=== PATIENT | male | born 1950 | race Caucasian/White ===

== ENCOUNTER 2016-10-17 03:45 | Emergency (ER) | payer MEDICARE, OTHER ==
[~2016-10-17] VITALS: Ht 182.9 cm; Wt 98.0 kg
[2016-10-17 03:47] VITALS: BP 136/87; PULSE 100; RESP 16; O2SAT 93
[2016-10-17 03:59] VITALS: PULSE 94; RESP 16; TEMP 98.6; O2SAT 91
[2016-10-17] MEDS ORDERED: ESOM1CAP6 PO (04:04)
[2016-10-17] MEDS ORDERED: PLAQ200T PO (04:04)
[2016-10-17] MEDS ORDERED: LISI10TA PO (04:04)
[2016-10-17] MEDS ORDERED: HYDR-3516 PO (04:05)
[2016-10-17] MEDS ORDERED: SODIUM CHLOR 0.9% 1000 ML INJ 1,000 ML IV SCH (04:12)
[2016-10-17] MEDS ORDERED: ONDANSETRON HCL 4 MG/2 ML VIAL IVP ONE (04:15)
[2016-10-17] MEDS ORDERED: SODIUM CHLORIDE 0.9% FLUSH 10 ML FLUSH IV FLUSH PRN (04:15)
--- NOTE | 2016-10-17 04:19 | PD ---
HPI Chief Complaint: Abdominal pain Time Seen by Provider: 04:11 Travel History International Travel<30 days: No Contact w/Intl Traveler<30days: No Traveled to known affect area: No History of Present Illness HPI His is a 66-year-old gentleman with history of arthritis and hypertension, who presents here with complaints of abdominal pain with associated diarrhea. Please note that the initial triage sheet stated chest pain however he has abdominal pain. The patient denies any fevers, chills. He states he recently came down here from [place]. He denies any ill contacts. Patient also reports left shoulder pain. When asked if he had chest pain, he points up to his left upper shoulder. He denies any shortness breath or diaphoresis. He does state he feels extremely weak. There are no other complaints time of my examination. PFSH Past Medical History Arthritis: Yes Cardiovascular Problems: Yes (HTN) Hiatal Hernia: Yes Hypertension: Yes Influenza Vaccination: Yes Social History Alcohol Use: No Tobacco Use: No Substance Use: No Allergies-Medications (Allergen,Severity, Reaction): Coded Allergies: Visken (Verified Allergy, Severe, Hallucinations, 10/17/16) Reported Meds & Prescriptions Reported Meds & Active Scripts Active Reported Hydrocodone-Acetaminophen 5-325 mg Tab 1 Tab PO Q4H PRN Plaquenil (Hydroxychloroquine Sulfate) 200 Mg Tab 400 Mg PO DAILY Take with food Nexium 24 HR (Esomeprazole DR) 20 Mg Capdr 20 Mg PO DAILY Lisinopril-Hctz 10-12.5 Mg Tab 1 Tab PO DAILY Review of Systems Except as stated in HPI: all other systems reviewed are Neg General / Constitutional: No: Fever HENT: No: Headaches, Lightheadedness, Neck Pain Cardiovascular: Positive: Chest Pain or Discomfort, No: Palpitations, Irregular Rhythm, Syncope Respiratory: No: Cough Gastrointestinal: Positive: Nausea, Diarrhea, Abdominal Pain (crampy mid), No : Vomiting Genitourinary: No: Frequency, Dysuria Musculoskeletal: Positive: Weakness (left shoulder generalized), Pain Neurologic: Positive: Weakness, No: Dizziness (10 Javier), Headache, Change in Mentation Physical Exam Narrative GENERAL: Well-developed well-nourished gentleman who appears weak. SKIN: Focused skin assessment warm/dry. HEAD: Atraumatic. Normocephalic. EYES: No scleral icterus. No injection or drainage. ENT: No nasal bleeding or discharge. Mucous membranes pink and moist. NECK: Trachea midline. Supple. CARDIOVASCULAR: Regular rate and rhythm. No murmur appreciated. RESPIRATORY: No accessory muscle use. Clear to auscultation. Breath sounds equal bilaterally. GASTROINTESTINAL: Abdomen soft, nondistended. He has subjective tenderness is periumbilical area. There is no rebound but there was voluntary guarding. MUSCULOSKELETAL: No obvious deformities. No clubbing. No cyanosis. No edema. NEUROLOGICAL: Awake and alert but weak appearing. No obvious cranial nerve deficits. Motor grossly within normal limits. Normal speech. Data Data Last Documented VS Vital Signs Date Time Temp Pulse Resp B/P Pulse Ox O2 Delivery O2 Flow Rate FiO2 10/17/16 06:06 78 16 126/76 93 Room Air 10/17/16 03:59 98.6 Orders Basic Metabolic Panel (Bmp) (10/17/16 04:12) Complete Blood Count With Diff (10/17/16 04:12) Lipase (10/17/16 04:12) Urinalysis - C+S If Indicated (10/17/16 04:12) Ct Abd/Pel W Iv Contrast(Rout) (10/17/16 04:12) Iv Access Insert/Monitor (10/17/16 04:12) Ecg Monitoring (10/17/16 04:12) Oximetry (10/17/16 04:12) Ondansetron Inj (Zofran Inj) (10/17/16 04:15) Sodium Chlor 0.9% 1000 Ml Inj (Ns 1000 M (10/17/16 04:12) Sodium Chloride 0.9% Flush (Ns Flush) (10/17/16 04:15) Ckmb (Isoenzyme) Profile (10/17/16 04:12) Troponin I (10/17/16 04:12) Oral Contrast - Adult (10/17/16 04:19) Diatrizoate Liq ( Gastroview Liq) (10/17/16 04:21) Iohexol 350 Inj (Omnipaque 350 Inj) (10/17/16 06:12) Labs Laboratory Tests Test 10/17/16 10/17/16 04:10 05:50 White Blood Count 9.3 TH/MM3 Red Blood Count 5.07 MIL/MM3 Hemoglobin 14.8 GM/DL Hematocrit 44.9 % Mean Corpuscular Volume 88.5 FL Mean Corpuscular Hemoglobin 29.2 PG Mean Corpuscular Hemoglobin 33.0 % Concent Red Cell Distribution Width 14.0 % Platelet Count 212 TH/MM3 Mean Platelet Volume 8.3 FL Neutrophils (%) (Auto) 69.7 % Lymphocytes (%) (Auto) 14.8 % Monocytes (%) (Auto) 10.1 % Eosinophils (%) (Auto) 4.7 % Basophils (%) (Auto) 0.7 % Neutrophils # (Auto) 6.5 TH/MM3 Lymphocytes # (Auto) 1.4 TH/MM3 Monocytes # (Auto) 0.9 TH/MM3 Eosinophils # (Auto) 0.4 TH/MM3 Basophils # (Auto) 0.1 TH/MM3 CBC Comment DIFF FINAL Differential Comment Sodium Level 142 MEQ/L Potassium Level 3.9 MEQ/L Chloride Level 108 MEQ/L Carbon Dioxide Level 26.4 MEQ/L Anion Gap 8 MEQ/L Blood Urea Nitrogen 14 MG/DL Creatinine 0.98 MG/DL Estimat Glomerular Filtration 76 ML/MIN Rate Random Glucose 110 MG/DL Calcium Level 8.0 MG/DL Total Creatine Kinase 83 U/L Troponin I LESS THAN 0.02 NG/ML Lipase 79 U/L Urine Color YELLOW Urine Turbidity HAZY Urine pH 5.5 Urine Specific [place] 1.030 Urine Protein 30 mg/dL Urine Glucose (UA) NEG mg/dL Urine Ketones NEG mg/dL Urine Occult Blood NEG Urine Nitrite NEG Urine Bilirubin NEG Urine Urobilinogen LESS THAN 2.0 MG/DL Urine Leukocyte Esterase TRACE Urine RBC 1 /hpf Urine WBC 2 /hpf Urine Squamous Epithelial 2 /hpf Cells Urine Mucus FEW /lpf Microscopic Urinalysis Comment CULT NOT INDICATED MDM Medical Decision Making Medical Screen Exam Complete: Yes Emergency Medical Condition: Yes Differential Diagnosis Gastroenteritis versus diverticulitis versus atypical ACS Narrative Course 66-year-old male visiting here from [place] comes in with nausea vomiting abdominal pain. The patient's EKG and cardiac enzymes show no evidence of acute process. Patient's laboratory tests are within normal limits including his white blood cell count and electrolytes. He has had no further episodes of emesis here. CT scan shows a hiatal hernia with no evidence of acute process. He states he feels much improved. He's been given 1 L of IV fluid. He'll be discharged told to have a bland diet. To be instructed to return if he develops any worsening symptoms. He'll be instructed to increase his fluid intake. Diagnosis Primary Impression: Nausea vomiting and diarrhea Additional Impression: Abdominal discomfort Additional Instructions: [place] diet. Advance as tolerated. Increase her fluid intake. Disposition: 01 DISCHARGE HOME Condition: Stable Jorge Ng MD Oct 17, 2016 04:18
[2016-10-17] MEDS ORDERED: DIATRIZOATE MEGLUM/DIATRIZOATE SOD 9 ML CUP ONE (04:21)
[2016-10-17 04:27] LABS: AUTOMATED NEUTROPHIL # 6.5 TH/MM3 (1.8-7.7); BASOPHIL # 0.1 TH/MM3 (0-0.2); BASOPHIL % 0.7 % (0.0-2.0); EOSINOPHIL # 0.4 TH/MM3 (0-0.4); EOSINOPHIL % 4.7 % (0.0-4.0); HEMATOCRIT 44.9 % (39.0-51.0); HEMO FLAGS DIFF FINAL; LYMPH % 14.8 % (9.0-44.0); LYMPHOCYTE # 1.4 TH/MM3 (1.0-4.8); MEAN CELL VOLUME 88.5 FL (80.0-100.0); MEAN CORPUSCULAR HEMOGLOBIN 29.2 PG (27.0-34.0); MONO % 10.1 % (0.0-8.0); NEUT % 69.7 % (16.0-70.0); PLATELET COUNT 212 TH/MM3 (150-450); RED BLOOD COUNT 5.07 MIL/MM3 (4.50-5.90); WHITE BLOOD COUNT 9.3 TH/MM3 (4.0-11.0)
[2016-10-17 05:00] LABS: ANION GAP 8 MEQ/L (5-15); BICARBONATE 26.4 MEQ/L (21.0-32.0); BLOOD UREA NITROGEN 14 MG/DL (7-18); CHLORIDE 108 MEQ/L (98-107); GLOMERULAR FILTRATION RATE 76 ML/MIN (>89); POTASSIUM 3.9 MEQ/L (3.5-5.1); SODIUM (NA) 142 MEQ/L (136-145)
[2016-10-17 05:04] VITALS: BP 128/82; PULSE 87; RESP 16; O2SAT 92
[2016-10-17 05:16] LABS: CREATINE KINASE 83 U/L (39-308)
[2016-10-17 06:06] VITALS: BP_SYST 126; BP_SYST 6; BP_DIAS 76; PULSE 78; RESP 16; O2SAT 93
[2016-10-17] MEDS ORDERED: IOHEXOL 350 MG/ML 10 ML VIAL (for RAD DIAG) IV ONE (06:12)
[2016-10-17 06:21] LABS: BLOOD, URINE NEG (NEG); GLUCOSE,URINE NEG (NEG); KETONE, URINE NEG (NEG); MUCUS URINE FEW /lpf (OCC); NITRITE,URINE NEG (NEG); PH, URINE 5.5 (5.0-8.5); SQUAMOUS EPITHELIAL CELL URINE 2 /hpf (0-5); URINE COLOR YELLOW (YELLW/STRAW)
[2016-10-17 06:23] LABS: COMMENT (UR) CULT NOT INDICATED; CULTURE IF INDICATED CULT NOT INDICATED
--- NOTE | 2016-10-17 06:40 | RADRPT ---
EXAM DATE/TIME: 10/17/2016 05:51 [facility] COMPARISON: No previous studies available for comparison. INDICATIONS : Abdominal pain, nausea and diarrhea. IV CONTRAST: 100 cc Omnipaque 350 (iohexol) IV ORAL CONTRAST: Prescribed oral contrast ingested. RADIATION DOSE: 10.96 CTDIvol (mGy) MEDICAL HISTORY : Hypertension. Hernia, hiatal. SURGICAL HISTORY : None. ENCOUNTER: Initial ACUITY: 1 day PAIN SCALE: 4/10 LOCATION: All quadrants. TECHNIQUE: Volumetric scanning of the abdomen and pelvis was performed. Using automated exposure control and ad justment of the mA and/or kV according to patient size, radiation dose was kept as low as reasonably achievable to obtain optimal diagnostic quality images. DICOM format image data is available electro nically for review and comparison. FINDINGS: Examination of the lung bases demonstrates no abnormality. No pleural fluid is identified. No pulmona ry nodules are present. A large hiatal hernia is present. The liver and spleen are free of focal defe cts. The gallbladder and pancreas demonstrate no abnormality. The adrenal glands are normal. The kidn eys demonstrate no evidence of solid renal mass or hydronephrosis. No free fluid or abdominal masses are identified. No para-aortic adenopathy is seen. A circumaortic left renal vein is present. Examina tion of the right lower quadrant demonstrates no abnormality. The appendix is identified and appears normal. Examination of the pelvis demonstrates no evidence of free fluid or pelvic mass. No abnormally enlarg ed inguinal or retroperitoneal lymph nodes are present. The bladder is unremarkable. There is diverti culosis without evidence of diverticulitis. CONCLUSION: 1. No evidence of acute abdominal or pelvic process. No masses are identified. 2. Large hiatal hernia Ren Jay MD on October 17, 2016 at 6:36 Board Certified Radiologist. This report was verified electronically.
--- NOTE | 2016-10-17 09:35 | EKG ---
Date Performed: 10/17/2016 Time Performed: 04:03:42 PTAGE: 66 years EKG: Sinus rhythm PATTERN CONSISTENT WITH PULMONARY DISEASE LEFT ANTERIOR FASCICULAR BLOCK ABNORMAL ECG NO PREVIOUS TRACING DOCTOR: Ren Ag Interpretating Date/Time 10/17/2016 09:32:18
== END 2016-10-17 06:54 | disposition home or self-care (01) ==
LOC: NEPE 03:45
DX: R11.2 Nausea with vomiting, unspecified (principal); R10.9 Unspecified abdominal pain; I10 Essential (primary) hypertension; K44.9 Diaphragmatic hernia without obstruction or gangrene
CPT/HCPCS: 74177; 80048; 81001; 82550; 83690; 84484; 85025; 93005; 96361; 96374; 99285; J2405; J7030; Q9963; Q9967